=== PATIENT | male | born 1975 | race Caucasian/White ===

== ENCOUNTER 2016-09-22 06:04 | Observation (INO) | payer OTHER ==
[2016-09-22] MEDS ORDERED: ONDANSETRON DISINTEGRATING 4 MG TAB ONE (06:25)
[2016-09-22] MEDS ORDERED: ONDANSETRON DISINTEGRATING 4 MG TAB PO ONE (06:29)
--- NOTE | 2016-09-22 06:33 | EDPHY ---
H & P Stated Complaint: RIGHT MIDDLE FINGER SWOLLEN AND RED, ? FORIEGN BODY/PLYWOOD HPI/ROS: HPI CHIEF COMPLAINT: Right middle finger digit swelling inflammation and pain HISTORY OF PRESENT ILLNESS: This patient very pleasant 41-year-old male, denies any significant medical or surgical history does not take any daily medications, presents to the emergency room with his 3rd digit on his right hand swollen, red and painful it appears to be a sausage digit. He appears to have significant flexor tenosynovitis. Patient tells me that on Friday he was moving a piece of plywood he thinks he got a piece of wood stuck in there. Approximately last night he developed throbbing pain swelling, redness the pain persistently got worse over the night to the point that he had to come to the emergency room due to pain control. Denies fever. Clinically here on exam he has signs of flexor tenosynovitis with a sausage digit swollen finger with tenderness to palpation. There may be a foreign body on the palmar side mid aspect. X-ray is pending.. Last tetanus shot was 2010. Last ate at 5:00 a.m.. Left-hand dominant. Past Medical History: No medical history Past Surgical History: No surgical history Social History: denies daily use drugs alcohol tobacco products Family History: Noncontributory ROS REVIEW OF SYSTEMS: A comprehensive 10 point review of systems is otherwise negative aside from elements mentioned in the history of present illness. Exam Constitutional triage nursing summary reviewed, vital signs reviewed, awake/ alert. Eyes normal conjunctivae and sclera, EOMI, PERRLA. HENT normal inspection, atraumatic, moist mucus membranes, no epistaxis, neck supple/ no meningismus, no raccoon eyes. Respiratory clear to auscultation bilaterally, normal breath sounds, no respiratory distress, no wheezing. Cardiovascular rate normal, regular rhythm, no murmur, no edema, distal pulses normal. Gastrointestinal soft, non-tender, no rebound, no guarding, normal bowel sounds, no distension, no pulsatile mass. Genitourinary no CVA tenderness. Musculoskeletal right hand: 3rd digit this is fat, swollen, red, has signs of flexor tenosynovitis, no steven pus, on the palmar side mid aspect of the phalanx there is a lesion, no midline vertebral tenderness, full range of motion, no calf swelling, no tenderness of extremities, no meningismus, good pulses, neurovascularly intact. Skin pink, warm, & dry, no rash, skin atraumatic. Neurologic awake, alert and oriented x 3, AAOx3, moves all 4 extremities equally, motor intact, sensory intact, CN II-XII intact, normal cerebellar, normal vision, normal speech. Psychiatric normal mood/affect. Heme/Lymph/Immune no lymphadenopathy. Differential Diagnosis: includes but is not limited to in a particular flexor tenosynovitis, hand infection, finger infection, foreign body Medical Decision Making: plan for patient IV will be established be given broad- spectrum antibiotics 2 g IV Ancef, obtain blood work including inflammatory markers, he will have an x-ray to help visualize if there is a foreign body. I will also consult Hand surgery as it appears to have a flexor tenosynovitis or hand infection. I have ordered him IV morphine for pain control IV Zofran for nausea and IV fluids. Re-evaluation: 0645: spoke with Dr. Marshall Hand surgery who will come and see the patient. Mostly taken to the OR for drainage of this finger infection. 0708: this patient was noted to be bradycardic. I performed an EKG this is time of EKG 7:04 a.m., sinus bradycardia rate of 43, otherwise unremarkable. ED x-ray: finger three view: Soft tissue swelling, no evidence of foreign body or gas. No bony erosion. 0714: I did speak with the patient understands most likely he will need to go to the OR with Hand surgery to have his finger opened up and washed out he is agreeable for this plan at this time. Source: Patient - Personal History Current Tetanus/Diphtheria Vaccine: Yes Tetanus Vaccine Date: 2010 - Medical/Surgical History Hx Asthma: No Hx Chronic Respiratory Disease: No Hx Diabetes: No Hx Cardiac Disease: No Hx Renal Disease: No Hx Cirrhosis: No Hx Alcoholism: No Hx HIV/AIDS: No Hx Splenectomy or Spleen Trauma: No Other PMH: DENIES - Social History Smoking Status: Current some day smoker Constitutional: Initial Vital Signs Temperature (C) 36.8 C 09/22/16 06:10 Heart Rate 74 09/22/16 06:10 Respiratory Rate 18 09/22/16 06:10 Blood Pressure 139/79 H 09/22/16 06:10 O2 Sat (%) 96 09/22/16 06:10 O2 Delivery Mode Room Air Allergies/Adverse Reactions: No Known Allergies Allergy (Unverified 09/22/16 06:26) Home Medications: Medication Instructions Recorded Aspirin EC [Aspirin EC 325 mg (*)] 975 mg PO DAILY 09/22/16 Medical Decision Making - Data Points Laboratory Results: Laboratory Results 09/22/16 06:47 09/22/16 06:47 Medications Given: Discontinued Medications Cefazolin Sodium/Dextrose (Ancef 2 Gm (Premix)) 100 mls @ 200 mls/hr IV EDNOW ONE PRN Reason: Protocol Stop: 09/22/16 07:06 Last Admin: 09/22/16 07:35 Dose: 100 mls Sodium Chloride (Ns) 1,000 mls @ 0 mls/hr IV ONCE ONE PRN Reason: Wide Open Stop: 09/22/16 06:38 Last Admin: 09/22/16 06:50 Dose: 1,000 mls Morphine Sulfate (Morphine) 6 mg IVP EDNOW ONE Stop: 09/22/16 06:39 Last Admin: 09/22/16 06:55 Dose: 6 mg Ondansetron HCl (Zofran Odt) 4 mg PO EDNOW ONE Stop: 09/22/16 06:30 Last Admin: 09/22/16 06:30 Dose: 4 mg Ondansetron HCl (Zofran) 4 mg IVP EDNOW ONE Stop: 09/22/16 06:39 Last Admin: 09/22/16 06:55 Dose: 4 mg Departure - Departure Disposition: To OP Cath/Surgery Clinical Impression: Infected hand, Flexor tenosynovitis of finger Condition: Fair
[2016-09-22] MEDS ORDERED: ceFAZolin 2 GM/DEXTROSE 100 ML IV ONE (06:37)
[2016-09-22] MEDS ORDERED: NS 1,000 ML IV ONE (06:37)
[2016-09-22] MEDS ORDERED: ONDANSETRON 4 MG/2 ML VIAL IVP ONE (06:38)
--- NOTE | 2016-09-22 07:06 | CPEKG ---
Heart Rate: 43 RR Interval: 1395 P-R Interval: 184 QRSD Interval: 90 QT Interval: 444 QTC Interval: 376 P Price: 20 QRS Price: 60 T Wave Price: 48 EKG Severity - OTHERWISE NORMAL ECG - EKG Impression: SINUS BRADYCARDIA Electronically Signed By: Yousif Ortiz 24-Sep-2016 15:10:37
[2016-09-22 07:12] LABS: % IMMATURE GRANULYOCYTES 0.4 % (0.0-1.1); ABSOLUTE IMMATURE GRANULOCYTES 0.04 10^3/uL (0.00-0.10); ADD DIFF? NO; ADD MORPH? NO; ADD SCAN? NO; ATYPICAL LYMPHOCYTE FLAG 10 (0-99); FRAGMENT RBC FLAG 0 (0-99); HEMATOCRIT 45.2 % (40.0-51.0); HEMOGLOBIN 15.7 g/dL (13.7-17.5); LEFT SHIFT FLG 0 (0-99); LIPEMIA HEMOLYSIS FLAG 90 (0-99); MEAN CELL HEMOGLOBIN 29.8 pg (27.9-34.1); MEAN CELL HEMOGLOBIN CONCENTR. 34.7 g/dL (32.4-36.7); MEAN CELL VOLUME 85.8 fL (81.5-99.8); MEAN PLATELET VOLUME 9.3 fL (8.7-11.7); PLATELET CLUMPS FLAG 20 (0-99); PLATELET COUNT 197 10^3/uL (150-400); RED BLOOD CELL COUNT 5.27 10^6/uL (4.40-6.38); RED CELL DISTRIBUTION WIDTH 12.7 % (11.5-15.2)
[2016-09-22 07:32] LABS: SEDIMENTATION RATE 6 MM/HR (0-15)
[2016-09-22 07:36] LABS: ANION GAP 11 mEq/L (8-16); C-REACTIVE PROTEIN 37.6 mg/L (<10.0); CALCIUM 9.3 mg/dL (8.5-10.4); CARBON DIOXIDE 22 mEq/l (22-31); CHLORIDE 107 mEq/L (97-110); CREATININE 0.9 mg/dL (0.7-1.3); GLOMERULAR FILTRATION RATE > 60; GLUCOSE 96 mg/dL (70-100); POTASSIUM 4.1 mEq/L (3.5-5.2); SODIUM 140 mEq/L (134-144)
[2016-09-22] MEDS ORDERED: POLYMYXIN B SULFATE 500,000 UNIT/10 ML SYR IRR ONE ×2 (07:50→08:39)
[2016-09-22] MEDS ORDERED: BACITRACIN 50,000 UNITS/10 ML SYR IRR ONE ×2 (07:50→08:39)
[2016-09-22] MEDS ORDERED: PROPOFOL 200 MG/20 ML VIAL ONE (08:02)
[2016-09-22] MEDS ORDERED: DEXAMETHASONE 4 MG/ML VIAL ONE (08:02)
[2016-09-22] MEDS ORDERED: ONDANSETRON 4 MG/2 ML VIAL ONE (08:02)
[2016-09-22] MEDS ORDERED: fentaNYL 100 MCG/2 ML INJ ONE (08:02)
[2016-09-22] MEDS ORDERED: LIDOCAINE 2% 100 MG/5 ML SYR ONE (08:02)
[2016-09-22] MEDS ORDERED: ROCURONIUM 50 MG/5 ML VIAL ONE (08:03)
[2016-09-22] MEDS ORDERED: BUPIVACAINE/EPI 0.5% 30 ML SDV ONE (08:11)
--- NOTE | 2016-09-22 08:11 | GCON ---
[f rep st] CONSULTATION DATE OF CONSULTATION: 09/22/2016 CHIEF COMPLAINT: Infected right middle finger. HISTORY OF PRESENTING COMPLAINT: The patient is a 41-year-old, left-hand dominant male, who was at work on Friday and sustained a splinter injury from a piece of plywood to his right middle finger. In the past several hours, he has noted increasing redness and pain and presented to the emergency r oom early this morning. PAST MEDICAL HISTORY: Unremarkable. MEDICATIONS: None. ALLERGIES: None known. PHYSICAL EXAMINATION: GENERAL: He is a healthy-looking 41-year-old male. CARDIOVASCULAR: Heart s ounds are normal. RESPIRATORY: Chest clear with good air entry. EXTREMITIES: Examination of the extremity reveals a red, sausage-like right middle finger with a small puncture wound over the middl e segment, volar radial surface. The finger is held in slight flexion. It is painful to move both passively and actively. He is tender over the flexor tendon sheath. DIAGNOSTIC TESTING: X-ray is negative for foreign body and on history, he is pretty clear that he d id not feel that there was any splinter that went into the finger. IMPRESSION: Flexor tenosynovitis, right middle finger. PLAN: Incision and drainage of same. /[id number]/MODL
[2016-09-22] MEDS ORDERED: SUGAMMADEX SODIUM 200 MG/2 ML VIAL IVP ONE (08:47)
[2016-09-22] MEDS ORDERED: ONDANSETRON 4 MG/2 ML VIAL IVP PRN (09:10)
[2016-09-22] MEDS ORDERED: DIPHENOXYLATE/ATROPINE LOMOTIL 1 TAB PO PRN (09:10)
[2016-09-22] MEDS ORDERED: ONDANSETRON DISINTEGRATING 4 MG TAB PO PRN (09:10)
[2016-09-22] MEDS ORDERED: TEMAZEPAM 15 MG CAP PO PRN (09:10)
[2016-09-22] MEDS ORDERED: traMADol 50 MG TAB PO PRN (09:10)
[2016-09-22] MEDS ORDERED: CYCLOBENZAPRINE 10 MG TAB PO PRN (09:10)
[2016-09-22] MEDS ORDERED: MIDAZOLAM 2 MG/2 ML VIAL ONE (09:27)
[2016-09-22] MEDS ORDERED: LR 1,000 ML IV SCH (09:30)
--- NOTE | 2016-09-22 10:01 | GOP ---
[f rep st] OPERATIVE REPORT DATE OF OPERATION: 09/22/2016 SURGEON: Bhanu Marshall MD PREOPERATIVE DIAGNOSIS: Flexor tenosynovitis, right middle finger. POSTOPERATIVE DIAGNOSIS: Flexor tenosynovitis, right middle finger. PROCEDURE PERFORMED: Incision and drainage of flexor tenosynovitis, right middle finger. FINDINGS: DESCRIPTION OF PROCEDURE: With the patient lying supine under general anesthesia, right hand was el evated for 2 minutes and tourniquet was inflated to 250 mmHg. A V-shaped Maria Del Rosario-type incision was made, extending from the DIP crease back to the proximal part of the middle phalanx, where the wound from the splinter was visible. Skin flap was raised and pus was encountered in the deep space in t he finger just superficial to the tendon sheath. This was swabbed and sent for Gram stain and cultu re. The tendon sheath itself was opened up and somewhat cloudy fluid was expressed, which was not d efinitively purulent, but did appear inflamed. A proximal counterincision was made in the distal pa lmar crease and dissection was taken down there to the level of the A1 adry of the middle finger, which was opened up. A 22-gauge Angiocath was then placed into the tendon sheath and irrigation wit h several hundred cubic centimeters of saline with polymyxin and bacitracin was carried out. Very a dequate drainage of the fluid from the distal incision was seen. Closure of incisions was carried o ut with 4-0 and 5-0 Prolene, suturing the Angiocath into position proximally and a wick distally to allow for drainage. A dressing of Xeroform and gauze was applied, followed by a fiberglass volar sp lint. A short segment of IV tubing was attached to the Angiocath to allow for subsequent irrigation . The procedure was tolerated well. Estimated blood loss less than 10 mL. Total tourniquet time w as 15 minutes. /[id number]/MODL
[2016-09-22] MEDS: ACETAMINOPHEN 325 MG TAB PO SCH ×3 (12:22→23:07)
[2016-09-22] MEDS: BACITRACIN IRR SCH ×3 (14:34→22:58)
[2016-09-22] MEDS: POLYMYXIN B SULFATE IRR SCH ×3 (14:34→22:58)
[2016-09-22] MEDS: NS IRR SCH ×3 (14:34→22:58)
[2016-09-22] MEDS: ceFAZolin 2 GM/DEXTROSE 100 ML IV SCH ×2 (14:34→22:07)
[2016-09-23 02:18] VITALS: O2SAT 94
[2016-09-23] MEDS: NS IRR SCH ×2 (03:07→07:14)
[2016-09-23] MEDS: POLYMYXIN B SULFATE IRR SCH ×2 (03:07→07:14)
[2016-09-23] MEDS: BACITRACIN IRR SCH ×2 (03:07→07:14)
[2016-09-23 04:10] VITALS: RESP 16
[2016-09-23 05:18] LABS: % IMMATURE GRANULYOCYTES 0.3 % (0.0-1.1); ABSOLUTE IMMATURE GRANULOCYTES 0.04 10^3/uL (0.00-0.10); ADD DIFF? NO; ADD MORPH? NO; ADD SCAN? NO; ATYPICAL LYMPHOCYTE FLAG 0 (0-99); FRAGMENT RBC FLAG 0 (0-99); HEMATOCRIT 41.3 % (40.0-51.0); HEMOGLOBIN 14.2 g/dL (13.7-17.5); LEFT SHIFT FLG 0 (0-99); LIPEMIA HEMOLYSIS FLAG 90 (0-99); MEAN CELL HEMOGLOBIN 30.3 pg (27.9-34.1); MEAN CELL HEMOGLOBIN CONCENTR. 34.4 g/dL (32.4-36.7); MEAN CELL VOLUME 88.2 fL (81.5-99.8); MEAN PLATELET VOLUME 9.4 fL (8.7-11.7); PLATELET CLUMPS FLAG 0 (0-99); PLATELET COUNT 182 10^3/uL (150-400); RED BLOOD CELL COUNT 4.68 10^6/uL (4.40-6.38); RED CELL DISTRIBUTION WIDTH 12.8 % (11.5-15.2)
[2016-09-23] MEDS: ceFAZolin 2 GM/DEXTROSE 100 ML IV SCH (06:20)
[2016-09-23] MEDS: ACETAMINOPHEN 325 MG TAB PO SCH (06:23)
[2016-09-23] MEDS ORDERED: oxyCODONE IR 5 MG TAB ONE (07:56)
[2016-09-23] MEDS ORDERED: oxyCODONE IR 5 MG TAB PO PRN (07:59)
[2016-09-23 08:15] VITALS: TEMP 98.7
[2016-09-23] MEDS ORDERED: OXYCODONE/APAP 5/325 TAB PO PRN (11:58)
[2016-09-23 12:00] VITALS: BP 127/80; PULSE 72
[2016-09-23] MEDS ORDERED: CEPHALEXIN 500 MG CAP PO SCH (12:00)
== END 2016-09-23 14:03 | disposition home or self-care (01) ==
LOC: INTOOBSV 06:54 → F3N 09:53
PROVIDERS: ADMIT Plastic Surgery; ATTEND Plastic Surgery
PROC: 0L970ZZ Drainage of Right Hand Tendon, Open Approach (ICD-10-PCS; principal; 2016-09-22 08:14)
DX: M65.841 Other synovitis and tenosynovitis, right hand (principal)
CPT/HCPCS: 96374; G0378; J0690; J1100; J2001; J2250; J2405; J2704; J3010